=== PATIENT | female | born 1975 | race Caucasian/White ===

== ENCOUNTER → 2023-01-24 12:47 | Outpatient (REF) | payer OTHER, SELFPAY ==
--- NOTE | 2023-01-24 12:52 | CA_ITS ---
Transthoracic Echocardiogram Patient (Last, First, Middle): Ana Lilia Cobian, Gender: Female Date of : 1975 Age: 47 Procedure Date: 01/24/2023 Procedure Type: Transthoracic Echocardiogram Location: OP Height: 165.1 cm Weight: 74.84 kg BSA: 1.82 m2 Heart Rate: 75 bpm BP: 124 / 70 mmHg Riveter Pneumatic: GRACE Referring MD: Mary Montaño NP Symptoms: R06.001 DYSPNEA Study Quality: Fair but adequate ECG Rhythm: Sinus Conclusions: - The left ventricular systolic function is low normal. The calculated ejection fraction is 54% by biplane method. - No obvious valvular pathology seen on this study. Findings Left Ventricle Normal left ventricular cavity size. There is normal left ventricular wall thickness. The left ventricular systolic function is low normal. The calculated ejection fraction is 54% by biplane method. There is no evidence of regional wall motion abnormalities. Diastolic function is normal for age. Right Ventricle Normal right ventricular cavity size and systolic function. Atria Both atria are normal in size. Aortic Valve The aortic valve was not well visualized. The aortic valve structure and function is likely normal. There is no aortic valve stenosis. There is no aortic valve regurgitation. Mitral Valve The mitral valve appears normal. There is no mitral valve regurgitation. There is no mitral valve stenosis. Pulmonic Valve The pulmonic valve is likely normal. Tricuspid Valve Normal tricuspid valve structure. There is mild tricuspid valve regurgitation. There is no evidence of pulmonary hypertension. Great Vessels The asc aorta is normal in size. Venous The inferior vena cava is normal in size and collapses greater than 50% with inspiration. Pericardium/Pleural There is no evidence of pericardial effusion. Prior Study Comparison No prior study available for comparison. Recommendations, Care & Conclusions No obvious valvular pathology seen on this study. Measurements 2D Linear Measurements IVSd: 0.96 0.6-0.9/0.6-1.0 cm LVIDd: 4.49 3.9-5.3/4.2-5.9 cm LVIDd Index: 2.47 2.4-3.2/2.2-3.1 cm/m2 LVIDs: 3.22 2.0-3.6 cm LVPWd: 0.68 0.7-1.1 cm LA Diam: 3.30 2.7-3.8/3.0-4.0 cm LAIDs Index: 1.81 1.5-2.3 cm/m2 LV Mass: 145.19 67-162/88-224 g LV Mass Index: 79.77 43-95/49-115 g/m2 LVOT Diam: 1.90 3.0+(-)1.3 cm 2D Systolic Function EF 4C: 48.70 >55% EF 2C: 58.80 >55% EF BiP: 53.60 >55% Mitral Valve MV Pk E: 0.77 MV PK A: 0.55 MV Decel Time: 193.00 E/A: 1.40 E'Lateral: 11.60 E'Medial: 10.20 E/E' Med: 7.50 E/E' Lat: 6.60 PHT: 57.00 MVA PHT: 3.86 Decel Marinette: 3.97 Aortic Valve AoV Pk Gerardo: 1.11 AoV Pk Grad: 5.00 FARHAN: 2.87 LVOT LVOT Pk Gerardo: 1.10 LVOT Mn Gerardo: 0.81 LVOT VTI: 0.25 LVOT Pk Grad: 5.00 LVOT Mn Grad: 3.00 LVOT Diam: 1.90 LVOT Area: 2.84 Diastolic Function MV Pk E: 0.77 MV Pk A: 0.55 E/A: 1.40 E'Medial: 10.20 E/E' Med: 7.50 E' Laterial: 11.60 E/E' Lat: 6.60 Right Ventricle TAPSE (mm): 18.20 TVS' Gerardo: 12.60 Tricuspid Valve TR Pk Gerardo: 2.07 TR Pk Grad: 17.00 RA Press: 3.00 RVSP: 20.00 Great Vessels Aorta Sinus of Valsalva: 2.40 2.0-3.5 cm Ao Asc: 2.80 2.1-3.4 cm Pulmonary Valve PV Pk Gerardo: 0.89 Peak PV Grad: 3.00 Updated in Other Vendor System with Status of Final Ilya Cr MD electronically signed on 01/24/2023 4:46:27 PM with status of Final
== END ==
LOC: HO.CARD 12:47
PROVIDERS: Visit Provider Nurse Practitioner Family
DX: R06.00 Dyspnea, unspecified (principal)
CPT/HCPCS: 93306

== ENCOUNTER → 2023-01-24 12:52 | Outpatient (BNV) | payer OTHER, SELFPAY | PROVIDERS: Visit Provider Internal Medicine | DX: I36.1 Nonrheumatic tricuspid (valve) insufficiency (principal) | CPT/HCPCS: 93306 ==

== ENCOUNTER 2024-07-16 09:29 | Outpatient (REF) | payer OTHER, SELFPAY ==
--- NOTE | 2024-07-16 09:32 | EMG_ITS ---
Chief complaint: Left worse than right, numbness in 1st-3rd digits, thenar pain Reason for referral: Evaluate for Carpal Tunnel Syndrome Referred by: Isaac ROBLES Procedure done: Bilateral upper extremities NCS/EMG Precautions and/or limitations: None The limb temperature was monitored continuously and remained between 32-36 degrees C during the performance of the NCS. Nerve Conduction Studies Anti Sensory Summary Table ?Stim Site NR Onset (ms) Norm Onset (ms) Peak (ms) Norm Peak (ms) O-P Amp (?V) Norm O-P Amp Site1 Site2 Delta-0 (ms) Dist (cm) Gerardo (m/s) Norm Gerardo (m/s) Left Median Anti Sensory (2nd Digit) Wrist ? 3.2 4.0 <3.6 12.9 >10 Wrist 2nd Digit 3.2 14.0 44 Right Median Anti Sensory (2nd Digit) Wrist ? 3.3 4.5 <3.6 26.9 >10 Wrist 2nd Digit 3.3 14.0 42 Left Radial Anti Sensory (Thumb) Forearm ? 1.8 2.3 <3.1 26.0 Forearm Thumb 1.8 0.0 Left Ulnar Anti Sensory (5th Digit) Wrist ? 2.2 2.9 <3.7 44.3 >15.0 Wrist 5th Digit 2.2 14.0 64 Right Ulnar Anti Sensory (5th Digit) Wrist ? 2.3 3.0 <3.7 29.3 >15.0 Wrist 5th Digit 2.3 14.0 61 Motor Summary Table ?Stim Site NR Onset (ms) Norm Onset (ms) O-P Amp (mV) Norm O-P Amp iAmp (mV) Amp (1st) (%) Site1 Site2 Delta-0 (ms) Dist (cm) Gerardo (m/s) Norm Gerardo (m/s) Left Median Motor (Abd Poll Brev) Wrist ? 4.3 <3.9 11.5 >4.5 13.5 100.0 Elbow Wrist 3.2 18.5 58 >45 Elbow ? 7.5 12.3 14.6 107.0 Right Median Motor (Abd Poll Brev) Wrist ? 4.9 <3.9 11.4 >4.5 13.9 100.0 Elbow Wrist 3.1 18.0 58 >45 Elbow ? 8.0 12.2 14.7 107.0 Left Ulnar Motor (Abd Dig Minimi) Wrist ? 2.6 <3.0 8.2 >5 9.5 100.0 B Elbow Wrist 2.6 18.0 69 >45 B Elbow ? 5.2 7.7 9.1 93.9 A Elbow B Elbow 1.3 10.0 77 >45 A Elbow ? 6.5 7.5 8.9 91.5 Right Ulnar Motor (Abd Dig Minimi) Wrist ? 2.9 <3.0 10.1 >5 11.6 100.0 B Elbow Wrist 2.6 16.0 62 >45 B Elbow ? 5.5 8.7 10.2 86.1 A Elbow B Elbow 1.0 10.0 100 >45 A Elbow ? 6.5 8.5 10.1 84.2 EMG ?Side Muscle Nerve Root Ins Act Fibs Psw Amp Dur Poly Recrt Int Pat Comment Right 1stDorInt Ulnar C8-T1 Nml Nml Nml Nml Nml 0 Nml Complete Right FlexCarRad Median C6-7 Nml Nml Nml Nml Nml 0 Nml Complete Right Biceps Musculocut C5-6 Nml Nml Nml Nml Nml 0 Nml Complete Right Triceps Radial C6-7-8 Nml Nml Nml Nml Nml 0 Nml Complete Right Deltoid Axillary C5-6 Nml Nml Nml Nml Nml 0 Nml Complete Left 1stDorInt Ulnar C8-T1 Nml Nml Nml Nml Nml 0 Nml Complete Left FlexCarRad Median C6-7 Nml Nml Nml Nml Nml 0 Nml Complete Left Biceps Musculocut C5-6 Nml Nml Nml Nml Nml 0 Nml Complete Left Triceps Radial C6-7-8 Nml Nml Nml Nml Nml 0 Nml Complete Left Deltoid Axillary C5-6 Nml Nml Nml Nml Nml 0 Nml Complete FINDINGS: Bilateral median motor nerves showed prolonged distal latency, normal amplitude and normal conduction velocity. Bilateral median sensory nerves showed prolonged peak latency. All other nerves tested were within normal. Concentric needle EMG was performed in selected muscles of the bilateral upper extremities. Study did not reveal signs of electric abnormalities as shown in the table above. IMPRESSION: 1. This is an abnormal study. 2. There is electrodiagnostic evidence for bilateral moderate-severe median neuropathy at the wrist, consistent with carpal tunnel syndrome. 3. There is no electrodiagnostic evidence for ulnar neuropathy, brachial plexopathy, or cervical radiculopathy. Thank you for your kind referral. Kindra Mcgee MD, MICHELLE Board Certified, [place] [employer] (ABPMR) Board Certified, [place] [employer] Electro[employer]ostic [employer] (ABEM) CODIN [phone] x 2 MTDD
== END 2024-07-16 09:30 | disposition home or self-care (01) ==
LOC: HO.NEURO 09:29
DX: R20.0 Anesthesia of skin (principal); R20.2 Paresthesia of skin
CPT/HCPCS: 95886; 95911

== ENCOUNTER → 2024-07-16 09:32 | Outpatient (BNV) | payer OTHER, SELFPAY | PROVIDERS: Visit Provider Physical Medicine & Rehabilitation | DX: G56.03 Carpal tunnel syndrome, bilateral upper limbs (principal) | CPT/HCPCS: 95886; 95911 ==

== ENCOUNTER 2024-08-22 10:05 | Outpatient (AMB) | payer OTHER, SELFPAY ==
--- NOTE | 2024-08-22 10:06 | A.OFFVIS_ITS ---
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 Patient reports bilateral numbness and tingling, primarily on her 1st, 2nd, and 3rd digits, that occurs daily, sporadically. Patient states it is worse at night. Denies finger locking. Has tried wrist braces for both hands, wears them at night without relief of symptoms. Denies prior injuries or surgeries to the right hand. Patient reports prior left wrist fracture. 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 Patient reports bilateral numbness and tingling, primarily on her 1st, 2nd, and 3rd digits, that occurs daily, sporadically. Patient states it is worse at night. Denies finger locking. Has tried wrist braces for both hands, wears them at night without relief of symptoms. Denies prior injuries or surgeries to the right hand. Patient reports prior left wrist fracture. 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 No thenar or intrinsic wasting. Good APB muscle firing and good finger cross. Vascular: Capillary refill brisk. ROM: Patient can make a fist and extend all their digits. Skin: No lacerations or abrasions noted. General: No ecchymosis. No erythema or evidence of infection. Results Reviewed Results Reviewed: IMPRESSION: 1. This is an abnormal study. 2. There is electrodiagnostic evidence for bilateral moderate-severe median neuropathy at the wrist, consistent with carpal tunnel syndrome. 3. There is no electrodiagnostic evidence for ulnar neuropathy, brachial plexopathy, or cervical radiculopathy. Thank you for your kind referral. Kindra Mcgee MD, MICHELLE Assessment & Plan Assessment & Plan (1) Bilateral carpal tunnel syndrome: Code(s): G56.03 - Carpal tunnel syndrome, bilateral upper limbs Category: Medical Plan 1. Bilateral carpal tunnel syndrome Symptoms intermittent daily, worse at night Patient is educated about this condition Patient is educated about the typical treatment course At this time, patient states would like to hold off on operative intervention, as she needs to get some of her home affairs in order before she is in a position to recover from surgery Patient is educated on the potential risks of prolonging treatment for carpal tunnel syndrome OT ordered Follow-up as needed and when she has decided to move forward with surgery Orders: Orders OT Evaluation and Treatment Today G56.03 - Carpal tunnel syndrome, bilateral upper limbs Coding Level of Care Code New Pt Level 3 (28761) Diagnoses Bilateral carpal tunnel syndrome G56.03
[2024-08-22 10:08] VITALS: BMI 30.6
--- OUTSIDE RECORDS SUMMARY | 2024-08-22 10:45 | XMS_ITS | Data Portability ---
Author Organization [facility], , [facility], OFFICE Address [address] [place] [address] Care Team Providers Care Java Software Developer Name Role Phone STOVALLMILTON Primary Care Provider [phone] Assessment Encounter Date Assessment Date Assessment LastModified by Organization Details LastModified Time 01/24/2024 01/24/2024 Phone therapy session from 11:00-11:45 a.m. Patient agreed to this visit via phone or secure telehealth platform. Patient understands this is a scheduled visit and the usual procedures with regard to billing and confidentiality apply. Patient was notified that the provider location is [facility] Patient location: home During the visit the patient? s medical history and medical record were reviewed. The patient was notified to call our office for worsening or urgent symptoms. eforman Not available 01/24/2024 11:03:37 05/22/2024 05/22/2024 Phone therapy session from 11:00-11:45 a.m. Patient agreed to this visit via phone or secure telehealth platform. Patient understands this is a scheduled visit and the usual procedures with regard to billing and confidentiality apply. Patient was notified that the provider location is [facility] Patient location: home During the visit the patient? s medical history and medical record were reviewed. The patient was notified to call our office for worsening or urgent symptoms. eforman Not available 05/22/2024 11:01:24 06/17/2024 06/17/2024 Phone therapy session from 5:00-5:45 p.m. Patient agreed to this visit via phone or secure telehealth platform. Patient understands this is a scheduled visit and the usual procedures with regard to billing and confidentiality apply. Patient was notified that the provider location is [facility] Patient location: home During the visit the patient? s medical history and medical record were reviewed. The patient was notified to call our office for worsening or urgent symptoms. eforman Not available 06/17/2024 17:02:06 Plan of Treatment Reminders Order Date Submit Date Provider Last Modified By Organization Details Last Modified Time Details Appointments None recorded. Lab rapid strep group A, throat [email or web address] P[facility], [address] [place] [address], [id number], 4 14:16:17 culture, throat - SOURCE THROAT 2023 024 [facility], [address] [place] [address], [address], 4 05:02:55 Referral hand surgeon referral - carpal tunnel eval and tx 2024 025 [email or web address] Jemima Foote MD, [address] [place] [address] [place], [address], 5 08:48:28 Procedures None recorded. Surgeries None recorded. Imaging None recorded. Medication Orders azithromyci n 250 mg tablet 2023 025 [facility] #[id number], [address] [place], [address], 5 14:33:25 Patient Targets Encounter Date Encounter Id Patient Goals Patient Target Last Modified By Organization Details Last Modified Time Decrease anxiety, process how to heal from spiritism upbringing eforman Not available 01/24/2024 11:03:12 Decrease anxiety, process how to heal from spiritism upbringing eforman Not available 05/22/2024 11:01:26 Decrease anxiety, process how to heal from spiritism upbringing eforman Not available 06/17/2024 17:01:40 Patient Instructions Encounter Date Encounter Id Patient Instructions Last Modified By Organization Details Last Modified Time 01/24/2024 [id number] Follow-up therap y if/when needed, continue to take medication as prescribed eforman Not available 01/24/2024 11:45:18 narayan Chavez is walking despite dire medical diagnosis which feels like a miracle experience has triggered difficult memories from parenting son vacation was enjoyable and helped reduce anxiety on diet for brenda-menopausal women (anti-inflammatory foods) which has been helpful in clearing brain fog working on better work/life balance, trying to not be a workaholic 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 Discussed of brother Harpreet in August (walking and hit by drunk carrier driver), hadn't talked to him since childhood, another brother also previously brother Krish is sole surviving brother, concerned about his alcoholism, uncertain whether to resume contact eforman Not available 01/24/2024 11:44:22 05/22/2024 [id number] Follow-up therap y if/when needed, continue to take medication as prescribed eforman Not available 05/22/2024 11:01:27 decided to reach out to brother Krish on facebook, felt comfortable with this decision found out from niece that Krish had a psychotic break a few years ago and believes he is God took 3 weeks off over Jada as realized hasn't had any rest this year in response to dismay over results of presidential election got a second dog, Landon, narayan Chavez has a wheelchair and is doing OK finds that exercising dogs has been helpful mentally and physically pleased that relationship with mom has improved planning to move to [place] or [place] - job opportunities for partner and proximity to airport - excited about the prospect but process has been stressful discussed the fact that I am unable to provide telehealth outside of [place] working on better work/life balance, trying to not be a workaholic, would like to pay more attention to nutrition and exercise eforman Not available 05/22/2024 11:47:50 06/04/2024 [id number] carpal tunnel syndrome: exercises [email or web address] Not available 06/04/2024 14:48:17 carpal tunnel syndrome: care instructions jdepiero Not available 06/04/2024 14:48:17 06/17/2024 [id number] Follow-up therap y 1 month, continue to take medication as prescribed eforman Not available 06/17/2024 17:45:48 reported that stephon and partner Paul will be moving to [place], [place], offer was accepted on a house, hope to close 07/11 and move in July very pleased with new house but concerned about how she will manage anxiety related to the move working on better work/life balance, trying to not be a workaholic, would like to pay more attention to nutrition and exercise anxiety about political situation but generally feels like she is in a better place in her life now reports medication and therapy have been very helpful in managing anxiety We will schedule one final session, does not feel the need to look for a new therapist at this time eforman Not available 06/17/2024 17:45:40 Reason for Referral Hand Surgeon Referral for Bi lateral carpal tunnel syndrome carpal tunnel eval and tx Referring Physician: Loren Ngo, Family Medicine, Encounter Date: 06/04/2024 Results Created Date Observation Date Name Description Value Unit Range Abnormal Flag Note LastModifiedBy Organization Detail LastModifiedTime 01/15/2001/15/2024 POCST REP strep A POC NEGATI VE Not Available [facility] [address] [place] [address], [address], 01/15/2024 14:10:17 01/15/2001/17/2024 CULTU RE, THROA T culture, throat CULTU RE, THROA T Micro Numbe r: [id number] Test Statu s: Final Speci men Sourc e: Throa t Speci men Quali ty: Adequ ate Resul t: No oroph aryng eal patho gens recov ered. Not Available [facility] [address] [place] [address] B, [place], [address], 01/17/2024 05:02:55 Result Notes None recorded. Procedures Surgical History Date Name Laterality Status Provider Name and Address Organization Details Recorded Time Loly - EGD completed Markus Salcido MD [address] [place] [address], [id number], [facility] 07/19/2023 08:35:59 Imaging Results None recorded. Procedure Notes None recorded. Medical Equipment None Reported. Allergies Allergen ID Allergen Name Allergen Category Reaction Reaction Severity Criticality Documentation Date Start Date Code Code System Note Provider Name and Address Organization Details Recorded Time 409581 amoxicill in medicatio n swelling Not available Not available 07/18/2023 723 RxNorm SHIRA Romo RN, [facility] 4 15:12:53 [id number] erythromy michael medicatio n vomiting Not available Not available 07/18/2023 4053 RxNorm Black out and vomit ing SHIRA Romo RN, [facility] 4 15:13:14 [id number] aspirin medicatio n other Not available Not available 07/18/2023 1191 RxNorm child clayton aller gy, unsur e of react ion SHIRA Romo RN, [facility] 4 15:13:36 Medications Name Sig Start Date Stop Date Status Note LastModified by Organization Details LastModified Time bupropion HCl SR 150 mg tablet,12 hr sustained -release TAKE 1 TABLET BY MOUTH TWICE A DAY 2024 active Not Available Not Available Not Avai lable atorvasta tin 10 mg tablet TAKE 1 TABLET BY MOUTH EVERY DAY IN THE EVENING 2024 active Not Available Not Available Not Avai lable azithromy michael 250 mg tablet TAKE 2 TABLETS BY MOUTH TODAY, THEN TAKE 1 TABLET DAILY FOR 4 DAYS DIRECTED 06/04 completed Not Available Not Available Not Available fluconazo le 150 mg tablet TAKE 1 TABLET BY MOUTH ONCE AND MAY REPEAT IN 3 DAYS 06/22 completed Not Available Not Available Not Available atovaquon e 250 mg-progua nil 100 mg tablet 03/22 completed Not Available Not Available Not Available famotidin e 40 mg tablet TAKE 1 TABLET BY MOUTH TWICE A DAY FOR 90 DAYS active Not Available Not Available No t Available Zantac 300 mg tablet Take 1 tablet every day by oral route. 2010 active Not Available Not Available Not Avai lable sumatript an 50 mg tablet Take 1-2 tablets by oral route once with fluids as early as possible after the onset of a migraine attack;m ay repeat after 2 hours if headache returns, not to exceed 200mg in 24hrs 12/13 completed Not Available Not Available Not Available ciproflox acin 500 mg tablet 03/22 completed Not Available Not Available Not Available bupropion HCl SR 100 mg tablet,12 hr sustained -release TAKE 1 TABLET BY MOUTH DAILY X 3 DAYS, THEN TAKE 1 TAB 2 TIMES A DAY active Not Available Not Available No t Available Flagyl ER 750 mg tablet,ex tended release Take 1 tablet twice a day by oral route for 7 days. 03/17 completed Not Available Not Available Not Available lorazepam 0.5 mg tablet TAKE 1 TO 2 TABLETS BY MOUTH NEEDED FOR PANIC active Not Available Not Available No t Available Flagyl 500 mg tablet TAKE 1 TABLET BY MOUTH TWICE A DAY FOR 7 DAYS 03/17 completed Not Available Not Available Not Available Acid Jelly 0.921 %-0.7 %-0.025 % vaginal gel 12/18 completed Take 1.00 applics as directed Not Available Not Available Not Available omeprazol e 20 mg capsule,d elayed release TAKE 1 CAPSULE BY MOUTH EVERY DAY 30 MINUTES BEFORE MORNING MEAL 06/04 completed not taking 01/15/24 oad Not Available Not Available Not Available permethri n 1 % topical liquid apply to affected areas x 10 min , then wash off, repeat in 1 wk if lice or eggs still noted. 2011 active Not Available Not Available Not Avai amanda ondansetr on 4 mg disintegr ating tablet TAKE 2 TABLETS BY MOUTH EVERY 8 HOURS NEEDED FOR PREMENST RUAL NAUSEA, VOMITING active Not Available Not Available No t Available sertralin e 50 mg tablet TAKE 1 TABLET BY MOUTH EVERYDAY AT BEDTIME active Not Available Not Available No t Available sulindac 200 mg tablet Take 1 tablet twice a day by oral route. 2009 active insuranc e wouldn't cover Not Available Not Available Not Available fluticaso ne propionat e 110 mcg/actua tion HFA aerosol inhaler Inhale 1 puff twice a day by inhalati on route. 06/04 completed not taking 01/15/24 oad Not Available Not Available Not Available Ventolin HFA 90 mcg/actua tion aerosol inhaler INHALE 2 PUFFS EVERY 4 HOURS. active Not Available Not Available No t Available Bactrim DS 800 mg-160 mg tablet Take 1 tablet every 12 hours by oral route for 10 days. 03/27 completed Not Available Not Available Not Available Flonase 50 mcg/Actua tion nasl susp [place] 1 spray every day by intranas al route. active Not Available Not Available No t Available Laxative (bisacody l) 5 mg tablet,de layed release TAKE 4 TABLETS BY MOUTH EVERY DAY 11/03 completed Not Available Not Available Not Available Relpax 20 mg tablet TAKE 1 TABLET BY MOUTH FOR 1 DOSE-IF HEADACHE RETURNS MAY REPEAT IN 2 HOURS-MA X 2/24HRS 03/20 completed Not Available Not Available Not Available Seasonale contracep tive 0.15 mg-30 mcg (91) tablets,3 month dose pack 12/03 completed Take 1.00 tabs every day before noon Not Available Not Available Not Available Claritin active Not Available Not Avai lable Not Available Mirena active Dr Anders 2019. Not Available Not Available Not Available sodium fluoride 1.1 %-potassi um nitrate 5 % dental paste PLEASE SEE ATTACHED FOR DETAILED DIRECTIO NS active Not Available Not Available No t Available GaviLyte- G 236 gram-22.7 4 gram-6.74 gram-5.86 gram oral solution TAKE DIRECTED 11/03 completed Not Available Not Available Not Available Chacha Allergy 06/04 completed Not Available Not Available Not Available Qvar RediHaler 80 mcg/actua tion HFA breath activated aerosol Inhale 2 puffs twice a day by inhalati on route. 06/04 completed Not Available Not Available Not Available Vitals None Recorded Social History Question Answer Notes LastModified by Organizat ion Details LastModified Time What Is Your Level Of Alcohol Consumption? Occasional 3-4 Glasses Wine 3x/week Information not available 03/31/2022 What Is Your Level Of Caffeine Consumption? Moderate 2 Cups Coffee Daily Currently None 05/17/22 Oad Information not available 05/17/2023 How Much Tobacco Do You Chew? None Information not available 02/22/2015 Are You Currently Employed? Yes Information not available 05/17/2023 What Type Of Diet Are You Following? SPECIFIC Fast Metabolism Diet Information not available 05/17/2023 Which Illicit Or Recreational Drugs Have You Used? Edibles [place] Information not available 05/17/2023 Do You Or Have You Ever Used E-cigarettes Or Vape? Never Used Electronic Cigarettes [email or web address] Information not available 06/20/2019 Education Post Graduate [employer] Degree In [employer] peace Information not available 12/18/2008 Have There Been Any Changes To Your Family Or Social Situation? No Son Moved Home From College For Now 04/2022 Information not available 05/11/2022 When Did You Quit Smoking? 16+yearssince lastcigarette Information not available 10/04/2021 How Many Days In The Past Year Have You Had A Heavy Drinking Consumption (4+ Female, 5+ Male)? 2 Information not available 06/22/2020 Are There Any Guns Present In Your Home? No [email or web address] Information not available 03/30/2011 Live Alone Or With Others? With Others Son And Partner [email or web address] Information not available 03/29/2018 Marital Status Informatio n not available 02/22/2015 Mosquito Repellent Used Routinely Yes [email or web address] Information not available 03/30/2011 What Was The Date Of Your Most Recent Tobacco Screening? 06/04/2024 [email or web address] Information not available 06/04/2024 How Many Children Do You Have? 1 [email or web address] Information not available 03/30/2011 Are There Any Occupational Health Risks Where You Work? None Information not available 02/22/2015 What Is Your Current Pack Years? 10packyears Information not available 03/29/2023 What Is Your Relationship Status? Domestic Partner Information not available 05/11/2022 Do You Use Your Seat Belt Or Car Seat Routinely? Yes Information not available 05/11/2022 Seat Belts Used Routinely Yes [email or web address] Information not available 03/30/2011 Are You Sexually Active? No [email or web address] Information not available 03/30/2011 Smoke Alarm In Home Yes [email or web address] Information not available 03/30/2011 Do You Have Smoke And Carbon Monoxide Detectors In Your Home? Yes Information not available 05/11/2022 At What Age Did You Start Smoking Tobacco? 13 Information not available 10/04/2021 Are You Passively Exposed To Smoke? No Information not available 05/11/2022 Do You Or Have You Ever Used Smokeless Tobacco? Never Used Smokeless Tobacco [email or web address] Information not available 06/20/2019 What Types Of Sporting Activities Do You Participate In? Runner Information not available 03/20/2016 General Stress Level Medium Information not available 06/22/2020 Do You Use Any Illicit Or Recreational Drugs? Yes Information not available 05/17/2023 Do You Use Sunscreen Routinely? Yes [email or web address] Information not available 03/30/2011 How Many Years Have You Smoked Tobacco? 6 Information not available 10/04/2021 Do You Or Have You Ever Used Any Other Forms Of Tobacco Or Nicotine? No Information not available 10/04/2021 Sex: Female Functional Status Question Answer Note LastModified by Organization D etails LastModified Time What is your exercise level? Moderate 3x wk Information not available 05/17/2023 Mental Status None recorded. Family History Relationship Description Onset Age of this Age Resolved Age Notes LastModified by Organization Details LastModified Time Maternal Grandfather Heart disease cad eerickson Not available 2014 11:55:20 Mother Hearing loss [email or web address] Not avai lable 02/22/2015 11:55:20 Mother Arthritis fibrom yalgia , rhemat oid arthri tis danyason Not available 02/22/2015 11:55:20 Mother Malignant tumor of colon also uterin e CA bgreen Not available 06/22/2020 11:32:35 Mother Neoplasm of uterus jdulude Not available 2020 11:29:44 Father Hypertensive disorder previo usly record ed as Hypert ension eerickson Not available 02/22/2015 11:55:20 Father Malignant neoplasm of skin jdulude Not available 2020 11:29:59 Sister Problem 1/2 sis-shekhar rderli ne person jaqueline hand Not available 02/22/2015 11:55:20 Sister Problem full sister peace Not available 02/22/2015 11:55:20 Brother Problem 1/2 bro eerickson Not available 02/22/2015 11:55:20 Brother Problem 1/2 ninfa eerickson Not available 02/22/2015 11:55:20 Brother Problem 12/ ninfa eerickson Not available 02/22/2015 11:55:20 Maternal Grandmother Problem 78 connie steele eerickson Not available 02/22/2015 11:55:20 Paternal Grandmother Malignant neoplastic disease skin cancer eerickson Not available 02/22/2015 11:55:20 Medical History No medical history recorded. Gynecological History Statement/Question Response Frequency of Cycle (Q days) 28 Date of LMP 06/03/2020 Menses Monthly Y N HPV N History of Abnormal Pap Y Duration of Flow (days) 5 Age at Menarche 12 Current Control Method IUD Definite N Obstetrics History GPAL:G 0 P 0 0 0 0 Past Encounters Encounter ID Performer Location Encounter Start Date Encounter Closed Date Diagnosis/Indication Diagnosis SNOMED-CT Code Diagnosis ICD10 Code Diagnosis Note [id number] [facility], OFFICE [address] [place] [address] 08/09/2000 09:30:00 06/03/2008 02:02:29 [id number] [facility], OFFICE [address] [place] [address] 05/22/2000 09:00:00 06/03/2008 02:02:29 [id number] [facility], OFFICE [address] [place] [address] 11/01/2000 09:30:00 06/03/2008 02:02:29 [id number] [facility], OFFICE [address] [place] [address] 01/23/2001 13:45:00 06/03/2008 02:02:29 [id number] [facility], OFFICE [address] [place] [address] 04/17/2001 08:15:00 06/03/2008 02:02:29 [id number] [facility], OFFICE [address] [place] [address] 06/07/2001 09:30:00 06/03/2008 02:02:29 [id number] [facility], OFFICE [address] [place] [address] 06/18/2001 13:30:00 06/03/2008 02:02:29 [id number] [facility], OFFICE [address] [facility] [place] [address] 09/09/2001 16:00:00 06/03/2008 02:02:29 [id number] FP, [facility], OFFICE [address] [facility] [place] [address] 09/13/2001 09:15:00 06/03/2008 02:02:29 [id number] [facility], OFFICE [address] [facility] [place] [address] 12/30/2001 16:05:06 06/03/2008 02:02:29 [id number] LAB - [facility] [address] [facility] [place] [address] 12/31/2001 16:32:20 06/03/2008 02:02:29 [id number] [facility], OFFICE [address] [facility] [place] [address] 01/20/2002 17:20:22 06/03/2008 02:02:29 [id number] FP [facility], OFFICE [address] [facility] [place] [address] 06/23/2002 16:12:11 06/03/2008 02:02:29 [id number] , [facility], OFFICE [address] [facility] [place] [address] 07/22/2002 16:45:33 06/03/2008 02:02:29 [id number] , [facility], OFFICE [address] [facility] [place] [address] 09/23/2002 13:42:29 06/03/2008 02:02:29 [id number] LAB - [facility] [address] [facility] [place] [address] 10/24/2002 08:31:18 06/03/2008 02:02:29 [id number] , [facility], OFFICE [address] [facility] [place] [address] 11/03/2002 14:53:08 06/03/2008 02:02:29 [id number] , [facility], OFFICE [address] [facility] [place] [address] 12/01/2002 16:40:07 06/03/2008 02:02:29 [id number] LAB - [facility] [address] 12/01/2002 00:00:00 06/03/2008 02:02:29 [id number] [facility], OFFICE [address] [facility] [place] [address] 01/24/2003 10:45:45 01/24/2003 14:35:47 [id number] LAB - [facility] [address] [place] [address] 01/24/2003 00:00:00 06/03/2008 02:02:29 [id number] [facility], OFFICE [address] [place] [address] 02/04/2003 15:53:04 02/05/2003 09:22:26 [id number] [facility], OFFICE [address] [place] [address] 04/02/2003 16:24:41 04/03/2003 09:48:58 [id number] [facility], OFFICE [address] [place] [address] 12/04/2003 13:41:59 12/05/2003 11:03:16 [id number] LAB - [facility] [address] [place] [address] 01/19/2004 16:03:52 01/19/2004 16:04:19 [id number] [facility], OFFICE [address] [place] [address] 03/28/2004 14:36:53 03/29/2004 15:51:21 [id number] LAB - [facility] [address] [place] [address] 03/31/2004 09:12:53 03/31/2004 09:12:58 [id number] [facility], OFFICE [address] [place] [address] 2004 08:43:12 06/03/2008 02:02:29 [id number] Radiology , [facility] [address] [place] [address] 10/28/2004 08:50:32 10/31/2004 10:02:36 [id number] Radiology , [facility] [address] [place] [address] 10/28/2004 00:00:00 06/03/2008 02:02:29 [id number] [facility], OFFICE [address] [place] [address] 04/07/2005 14:41:08 04/12/2005 13:14:40 [id number] [facility], OFFICE [address] [place] [address] 06/08/2005 11:02:28 06/08/2005 16:02:02 [id number] LAB - [facility] [address] [place] [address] 06/08/2005 12:45:15 06/08/2005 12:45:50 [id number] [facility], OFFICE [address] [place] [address] 06/30/2005 12:04:13 06/03/2008 02:02:29 [id number] [facility], OFFICE [address] [place] [address] 07/12/2006 09:58:04 07/16/2006 11:20:20 [id number] [facility], OFFICE [address] [place] [address] 04/11/2007 13:32:31 06/03/2008 02:02:29 [id number] LAB - [facility] [place] [address] 04/12/2007 09:18:15 04/12/2007 09:18:56 [id number] Radiology , [facility] [place] [address] 04/16/2007 16:00:12 04/17/2007 09:45:37 [id number] Radiology , [facility] [address] [place] [address] 04/16/2007 00:00:00 06/03/2008 02:02:29 [id number] LAB - [facility] [place] [address] 04/15/2007 09:18:29 04/15/2007 09:18:33 [id number] [facility], OFFICE [address] [place] [address] 08/13/2007 08:39:17 06/03/2008 02:02:29 [id number] LAB - [facility] [place] [address] 08/13/2007 10:16:48 08/13/2007 10:17:11 [id number] Radiology , [facility] [place] [address] 09/24/2007 15:46:06 09/25/2007 09:25:39 [id number] Radiology , [facility] Jean Marie [place] [address] 09/24/2007 00:00:00 06/03/2008 02:02:29 [id number] LAB - [facility] [place] [address] 6 10/11/2007 09:29:51 10/11/2007 09:30:02 [id number] , [facility], OFFICE [address] [facility] [place] [address] 10/10/2007 15:09:39 11/06/2007 14:17:54 [id number] , [facility], OFFICE [address] [facility] [place] [address] 6 12/03/2008 14:33:26 12/04/2008 09:05:59 [id number] Radiology , [facility] 70 [place] Godinez62-[address] 6 12/09/2008 10:57:14 12/15/2008 12:18:14 [id number] , [facility], OFFICE [address] [facility] [place] [address] 6 12/18/2008 09:57:34 12/23/2008 11:59:53 [id number] Radiology , [facility] 70 [facility] John SquiresenceDIONTE[address] 6 12/09/2008 00:00:00 03/11/2009 02:00:52 [id number] LAB - [facility] 70 [facility] John [place] [address] 6 12/18/2008 12:01:32 12/18/2008 12:01:39 [id number] LAB - [facility] 70 [facility] John SQUIRESENCEDIONTE [address] 6 01/26/2009 09:41:31 01/26/2009 09:41:44 [id number] , [facility], OFFICE 70 [facility] [place] 6 05/13/2009 14:16:06 05/17/2009 10:39:09 [id number] , [facility], OFFICE 70 [facility] [place] [address] 6 12/13/2009 14:37:38 12/29/2009 14:06:55 [id number] , [facility], OFFICE 70 [facility] [place] [address] 6 02/17/2010 08:29:37 02/21/2010 08:39:41 [id number] Radiology , [facility] 70 [facility] [place] [address] 6 02/17/2010 09:17:35 02/18/2010 12:20:58 [id number] , [facility], OFFICE 70 [place] [address] 6 03/17/2010 13:44:33 03/21/2010 10:36:45 [id number] [facility], OFFICE [address] [place] [address] 08/01/2010 14:03:49 08/03/2010 14:18:11 [id number] [facility], OFFICE [address] [place] [address] 6 03/02/2011 11:36:18 03/02/2011 12:42:56 [id number] Alayna Keys RN [facility], OFFICE [address] [place] [address] 6 05/10/2012 13:41:03 05/10/2012 14:34:22 [id number] Zulay Argueta [facility], OFFICE [address] [place] [address] 6 08/29/2013 08:14:42 08/29/2013 09:41:51 [id number] Shakira Verdin [facility], OFFICE [address] [place] [address] 6 02/10/2014 15:40:18 02/10/2014 16:38:14 [id number] Debora Gallegos LPN [facility], OFFICE [address] [place] [address] 6 08/11/2014 08:07:02 08/12/2014 08:53:11 [id number] Arlet Farah [facility], OFFICE [address] [place] [address] 6 02/22/2015 11:18:22 03/02/2015 13:05:07 [id number] MARGARET Garcia [facility], OFFICE [address] [place] [address] 6 03/18/2015 12:10:59 03/24/2015 08:14:05 [id number] Neisha Yarbrough [facility], OFFICE [address] [place] [address] 6 02/24/2016 14:10:21 02/24/2016 14:36:12 [id number] Lucia anguiano, PT Physical Therapy, [address] [address] 6 02/25/2016 11:59:23 02/28/2016 10:07:31 [id number] Lucia anguiano, PT Physical Therapy, [address] [address] 6 02/29/2016 14:30:06 03/01/2016 07:04:26 [id number] Lucia anguiano, PT Physical Therapy, [address] [address] 6 03/08/2016 08:37:02 03/08/2016 09:28:16 [id number] Lucia anguiano, PT Physical Therapy, [address] [address] 6 03/08/2016 09:08:25 03/08/2016 10:30:30 [id number] Lucia anguiano, PT Physical Therapy, [address] [address] 6 03/10/2016 12:37:02 03/10/2016 13:40:05 [id number] Mary Montaño NP , [facility], OFFICE [address] [place] [address] 6 03/20/2016 13:41:09 03/20/2016 14:30:43 [id number] Mary Montaño NP , [facility], OFFICE [address] [place] [address] 6 03/22/2017 10:23:29 03/22/2017 11:12:32 [id number] Edwin Husain MD , [facility], OFFICE [address] [place] [address] 6 03/29/2018 13:50:22 03/29/2018 14:45:09 [id number] Loren Ngo MD , [facility], OFFICE [address] [place] [address] 6 06/20/2019 07:58:16 06/20/2019 08:45:21 [id number] MD TAVIA Mike, [facility], OFFICE [address] [place] [address] 6 06/22/2020 11:14:36 06/24/2020 13:20:36 [id number] Lucia anguiano, PT Physical Therapy, [address] [address] 6 06/24/2020 13:04:34 06/25/2020 13:38:14 [id number] Lucia anguiano, PT Physical Therapy, [address] [address] 6 07/01/2020 09:30:12 07/01/2020 12:52:27 [id number] Lucia anguiano, PT Physical Therapy, [address] [place] [address] 6 07/07/2020 09:30:52 07/07/2020 17:00:10 [id number] Lucia Ennis z, PT Physical Therapy, [address] [place] [address] 6 07/14/2020 12:26:05 07/14/2020 15:13:50 [id number] Lucia Ennis z, PT Physical Therapy, [address] [place] [address] 6 07/21/2020 13:30:24 07/21/2020 16:31:32 [id number] Lucia Ennis z, PT Physical Therapy, [address] [address] 6 07/28/2020 13:47:20 07/29/2020 08:56:39 [id number] Lucia anguiano, PT Physical Therapy, [address] [address] 6 08/04/2020 11:54:12 08/04/2020 15:56:06 [id number] Lucia Ennis z, PT Physical Therapy, [address] [place] [address] 6 08/11/2020 15:27:50 08/11/2020 16:06:09 [id number] Lucia Ennis z, PT Physical Therapy, [address] [address] 6 08/18/2020 15:01:13 08/18/2020 15:49:24 [id number] Lucia Ennis z, PT Physical Therapy, [address] [address] 6 08/25/2020 11:27:17 08/25/2020 12:47:25 [id number] Lucia Ennis z, PT Physical Therapy, [address] [address] 6 09/01/2020 11:36:09 09/01/2020 16:07:21 [id number] Lucia Ennis z, PT Physical Therapy, [address] [address] 6 09/08/2020 14:31:22 09/08/2020 16:14:36 [id number] Lucia anguiano, PT Physical Therapy, [address] [address] 6 09/22/2020 14:53:57 09/22/2020 16:08:29 [id number] Lucia anguiano, PT Physical Therapy, [address] [address] 6 10/01/2020 07:27:50 10/01/2020 13:07:05 [id number] Lucia anguiano, PT Physical Therapy, [address] [address] 6 10/08/2020 12:05:11 10/08/2020 15:13:37 [id number] ATSHI Kapoor, [facility], OFFICE [address] [place] [address] 6 12/23/2020 12:11:15 12/24/2020 10:12:11 [id number] Lucia anguiano, PT Physical Therapy, [address] [address] 6 03/23/2021 15:56:38 03/23/2021 16:51:16 [id number] Lucia anguiano, PT Physical Therapy, [address] [address] 6 04/26/2021 16:59:42 04/27/2021 10:34:03 [id number] Lucia anguiano, PT Physical Therapy, [address] [address] 6 05/03/2021 14:22:45 05/03/2021 14:59:10 [id number] TASHI Kapoor, [facility], OFFICE [address] [place] [address] 6 08/26/2021 11:46:41 08/26/2021 12:09:02 [id number] TASHI Kapoor, [facility], OFFICE [address] [place] [address] 6 10/04/2021 13:25:24 10/04/2021 13:55:25 [id number] Nadja Can [facility], [address] [address] 6 11/24/2021 08:00:08 11/25/2021 11:00:34 [id number] Nadja Can [facility], [facility] [address] [place] [address] 6 12/01/2021 08:14:50 12/02/2021 10:23:44 [id number] Nadja Can [facility], [facility] [address] [place] [address] 6 12/13/2021 07:49:35 12/14/2021 13:07:34 [id number] Nadja Can [facility], [facility] [address] [place] [address] 6 12/30/2021 13:01:21 01/02/2022 13:29:11 [id number] Nadja Can [facility], [facility] [address] [place] [address] 6 01/09/2022 13:53:17 01/10/2022 13:16:09 [id number] Nadja Can [facility] 70 [place] [address] 6 01/23/2022 08:24:51 01/27/2022 13:22:36 [id number] Nadja Can [facility] [address] [place] [address] 6 02/10/2022 08:10:46 02/14/2022 12:20:02 [id number] Nadja Can [facility] [address] [place] [address] 6 02/23/2022 07:53:02 02/23/2022 16:38:21 [id number] Nadja Can [facility] [address] [place] [address] 6 03/02/2022 07:43:54 03/03/2022 21:08:31 [id number] Nadja Can [facility] [address] [place] [address] 6 03/23/2022 14:01:21 03/28/2022 08:14:06 [id number] Nadja Can [facility], [facility] [address] [place] [address] 6 03/30/2022 14:01:12 04/04/2022 12:52:55 [id number] Mary Montaño NP FP, [facility], OFFICE [address] [place] [address] 6 03/31/2022 11:57:49 03/31/2022 15:02:56 [id number] Nadja Can [facility] [address] [place] [address] 6 04/13/2022 14:02:06 04/17/2022 14:51:35 [id number] Mary Montaño NP , [facility], OFFICE [address] [place] [address] 6 05/11/2022 13:42:59 05/11/2022 22:06:21 [id number] Nadja Gabrielan [facility] [address] [place] [address] 6 05/22/2022 10:00:50 05/23/2022 15:14:37 [id number] Susi Cleary LPN , [facility], OFFICE [address] [place] [address] 6 05/26/2022 08:53:40 05/26/2022 12:00:22 [id number] Nadja Gabrielan [facility] [address] [place] [address] 6 06/05/2022 12:00:57 06/05/2022 14:52:13 [id number] Nadja Gabrielan [facility] [address] [place] [address] 6 06/16/2022 12:00:42 06/22/2022 13:32:23 [id number] Nadja Gabrielan [facility] [address] [place] [address] 6 06/29/2022 12:00:27 06/29/2022 13:04:22 [id number] Nadja Gabrielan [facility] [address] [place] [address] 6 07/20/2022 14:01:45 07/24/2022 15:21:11 [id number] Nadja Gabrielan [address] [address] 6 08/28/2022 15:01:19 08/31/2022 11:20:04 [id number] Nadja Gabrielan [facility] [address] [place] [address] 6 11/02/2022 11:01:08 11/10/2022 15:54:02 [id number] TASHI Kapoor, [facility], OFFICE [address] [place] [address] 6 11/03/2022 08:54:17 11/03/2022 09:36:29 [id number] Stephan Craig MD Sports Medicine, [facility] [address] [place] [address] 6 01/23/2023 10:50:52 01/25/2023 15:43:24 [id number] Nadja Can [facility], [facility] [address] [place] [address] 6 01/11/2023 11:01:15 01/12/2023 16:35:34 [id number] [facility] [address] [place] [address] 6 03/29/2023 11:01:21 03/30/2023 12:16:52 [id number] TASHI Kapoor, [facility], OFFICE [address] [place] [address] 6 03/29/2023 14:19:50 03/29/2023 17:58:39 [id number] [facility] [address] [place] [address] 6 04/26/2023 11:01:17 05/01/2023 09:21:37 [id number] TASHI Kapoor, [facility], OFFICE [address] [place] [address] 6 05/17/2023 13:47:00 05/17/2023 19:46:45 [id number] [facility] [address] [place] [address] 6 06/15/2023 11:01:32 06/16/2023 15:23:15 [id number] Ya Turk RN Endoscopy , [facility] [address] [place] [address] 07/19/2023 07:54:52 07/19/2023 13:37:20 [id number] TASHI Kapoor, [facility], OFFICE [address] [place] [address] 6 08/02/2023 15:49:56 08/07/2023 18:20:42 [id number] [facility] [address] [place] [address] 6 10/04/2023 11:01:40 10/06/2023 12:07:59 [id number] Nadja Can [address] [address] 6 10/30/2023 11:00:59 10/31/2023 14:31:13 [id number] Nadja Gabrielan [facility] [address] [place] [address] 6 12/06/2023 15:00:50 12/11/2023 13:22:25 [id number] Alix Gallo NP , [facility], OFFICE [address] [place] [address] 6 01/15/2024 13:43:37 01/16/2024 15:11:48 [id number] Nadja Pamella [facility] [address] [place] [address] 6 01/24/2024 11:02:33 01/28/2024 13:07:25 [id number] Nadja Wilton [address] [address] 6 05/22/2024 11:00:47 06/04/2024 15:54:34 [id number] Loren Ngo MD , [facility], OFFICE [address] [place] [address] 6 06/04/2024 14:28:05 06/04/2024 14:51:37 [id number] Nadja Gabrielan [facility] [address] [place] [address] 6 06/17/2024 17:00:49 06/19/2024 10:19:34 Health Concerns Section Related Observation LastModified by Organization Detai ls LastModified Time None Recorded Concern Status LastModified by Organization Details LastModified Time None Recorded Advance Directives Directive None Recorded Payers Encounter Date Sequence Insurance Name Policy Number Policy [place] Covered Member ID [place] Member ID Guarantor Name 01/15/2024 1 [facility]ENN[facility] HP - DOS ON OR AFTER 2022 - [facility] (MEDICAID REPLACEMENT - HMO) Sera Cobian [id number] Sera Cobian 01/24/2024 1 [facility] JENN[employer] HP - DOS ON OR AFTER 2022 - [employer] (MEDICAID REPLACEMENT - HMO) Sera Cobian [id number] Sera Cobian 05/22/2024 1 [employer] HP - DOS ON OR AFTER 2022 - [employer] (MEDICAID REPLACEMENT - HMO) Sera Cobian [id number] Sera Cobian 06/04/2024 1 [employer] - DOS ON OR AFTER 2022 - [employer] (MEDICAID REPLACEMENT - HMO) Sera Cobian [id number] Sera Cobian 06/17/2024 1 [employer] HP - DOS ON OR AFTER 2022 - [employer] (MEDICAID REPLACEMENT - HMO) Sera Cobian [id number] Sera Cobian OBGyn Episode No OBEpisode recorded.
== END 2024-08-22 10:38 | disposition home or self-care (01) ==
LOC: HO.HOS 10:06
DX: G56.03 Carpal tunnel syndrome, bilateral upper limbs (principal)
CPT/HCPCS: 99203

== ENCOUNTER 2024-09-23 14:57 | Outpatient (RCR) | payer OTHER, SELFPAY ==
--- NOTE | 2024-09-16 08:21 | MHC.OT.EP ---
[address] [phone] Occupational Therapy Plan of Care Patient Name: Ana Lilia Cobian Date of Evaluation: 09/12/24 Diagnosis: B Carpal Tunnel Syndrome Pain Location: B wrists / hands - median nerve pathway Pain Score: Pain Scale Used: Numeric (0 - 10) Aggravating Factors: none reprted Alleviating Factors: none reported Assessment: Pt is a 48 yr. old female who reports sx's of pain, numbness, tingling in B hands and UE's which has been happening for over a year. Pt had a Nerve Conduction study which showed severe / moderate CT. She does understand she is a candidate for surgery, but at this time pt. is unable to have the surgery due to having a disabled dog she needs to care for and a spouse who is out of town often. 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 Pt would benefit from skilled OT therapy to address hand weakness, pain, and numbness to increase the functional use of her B hands. 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 Thank you once again for your referral.
== END 2024-09-25 11:06 | disposition home or self-care (01) ==
LOC: HO.OT 14:57
PROVIDERS: PCP Family Medicine
DX: G56.03 Carpal tunnel syndrome, bilateral upper limbs (principal)
CPT/HCPCS: 97140; 97166

== ENCOUNTER 2024-10-01 10:00 | Day surgery (SDC) | payer MEDICAID, SELFPAY ==
--- OUTSIDE RECORDS SUMMARY | 2024-09-29 14:26 | XMS_ITS | Data Portability ---
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 REPLACEMENT - HMO) Sera Cobian [id number] Sera Cobian 06/04/2024 1 [employer] - DOS ON OR AFTER 2022 - [employer] (MEDICAID REPLACEMENT - HMO) Sera Cobian [id number] Sera Cobian 06/17/2024 1 [employer] - DOS ON OR AFTER 2022 - [employer] (MEDICAID REPLACEMENT - HMO) Sera Cobian [id number] Sera Cobian OBGyn Episode No OBEpisode recorded.
[2024-10-01 10:26] VITALS: BP 161/96; PULSE 95; RESP 16; TEMP 36.1; O2SAT 98; BMI 30.6
--- NOTE | 2024-10-01 11:09 | MHC.SHP ---
Pre-Procedural Eval Section A - 24 Hr Update-Section A only Date of Service: 10/01/24 The patient is an INPATIENT: No Changes since office visit: No Cold of Flu in the past 2 weeks, No New Medical Problems, No Changes in Medication and No Patient answered all questions The patient has been examined within 24 hours of the surgical procedure. The History & Physical has been completed within 30 days and I have reviewed it.: Yes Section B - Complete if H&P > 30 days Chief Complaint: Carpal tunnel syndrome, right upper limb Allergies: Allergies Allergy/AdvReac Type Severity Reaction Status Date / Time penicillin G Allergy Unknown Swelling Verified 08/22/24 10:10 erythromycin base AdvReac Intermediate Vomiting Verified 08/22/24 10:10 [From Erythrocin] Plan Diagnosis/Plan: Unchanged I have reviewed the history and physical and performed a pertinent physical examination on my patient. No changes have occurred unless specified. Time Spent With Patient Time: Total time managing care of this patient today ____ minutes.
--- NOTE | 2024-10-01 11:09 | W.PM.OPN ---
Operative Note Operative Note Date of Service: 10/01/24 Narrative: Preop diagnosis: 1. Right Carpal tunnel syndrome Postop diagnosis: same Procedure: 1. Right Carpal tunnel release Surgeon: Jemima Foote MD Mechanical Systems Design Engineer: Isaac ROBLES Anesthesia: local block using 1% lidocaine with epinephrine Findings: Thickened transverse carpal ligament. EBL: Less than 5 mL Specimens: None Complications: None Disposition: Brought to recovery room in stable condition Plan: Follow-up for 10-14 days for wound check and suture removal Indications: The patient is 48 years old, with right carpal tunnel syndrome that has been unresponsive to nonoperative management. The risks and benefits of operative treatment including but not limited to risk of damage to blood vessels, nerves, tendons, infection, persistent pain, persistent symptoms, or possible need for additional surgery were discussed with the patient and the patient wishes to proceed with surgery. Procedure: Once consent was obtained a local block was performed using a combination of 1% lidocaine with epinephrine. The patient was then brought back to the operating suite and placed on the operative table in supine position. The right upper extremity was prepped and draped in a standard surgical fashion. Once assured that we had a good block, a 2.0 cm longitudinal incision was made centered over the carpal tunnel. The incision was made through the skin to the subcutaneous tissues using a #15 blade. Dissection was made down to the level of the transverse carpal ligament with care being taken to protect the palmar cutaneous nerve. Once the transverse carpal ligament was clearly visualized, a longitudinal incision was made in the transverse carpal ligament 1st using a #15 blade, then using tenotomy scissors under direct visualization. Care was taken to look for and protect the motor branch of the median nerve when seen in this area. Once satisfied with our carpal tunnel release the wound was copiously irrigated with normal saline and hemostasis was obtained with a brief period of local pressure. The skin edges were reapproximated with some 5.0 nylon suture material and a sterile dressing was applied. The patient appears to have tolerated the procedure well and with no complications. All digits were well vascularized at the conclusion of the case.
[2024-10-01 12:49] VITALS: BP 141/81; PULSE 80; RESP 18; O2SAT 98
== END 2024-10-01 12:50 | disposition home or self-care (01) ==
PROVIDERS: PCP Family Medicine; Visit Provider Orthopaedic Surgery
PROC: (CPT 64721; principal; 2024-10-01 13:40)
DX: G56.01 Carpal tunnel syndrome, right upper limb (principal); R20.0 Anesthesia of skin; R20.2 Paresthesia of skin; Z88.0 Allergy status to penicillin; Z88.1 Allergy status to other antibiotic agents
CPT/HCPCS: 64721; J0171; J2003

== ENCOUNTER → 2024-10-01 10:00 | Outpatient (BNV) | payer MEDICAID, SELFPAY | PROVIDERS: PCP Family Medicine; Visit Provider Orthopaedic Surgery | DX: G56.01 Carpal tunnel syndrome, right upper limb (principal) | CPT/HCPCS: 64721 ==

== ENCOUNTER 2024-10-15 11:45 | Outpatient (AMB) | payer OTHER, SELFPAY ==
[2024-10-15 11:57] VITALS: BMI 30.6
--- NOTE | 2024-10-15 11:57 | MHC.OFFVIS ---
Vital Signs 10/15/24 11:57 Height 5 ft 5 in Weight 184 lb BMI 30.6 Intake Visit Reasons: PO-Rt CTR 10/01/24 Intake Note: Ana Lilia is a 48 year old left hand dominant female who presents today for a post operative visit status post right carpal tunnel release DOS: 10/01/[address] Jemima Foote. Patient denies numbness or tingling. Patient is doing well. Sutures removed in office and steri strips applied. Allergies penicillin G Allergy (Unknown, Verified 10/15/24 11:58) Swelling erythromycin base [From Erythrocin] Adverse Reaction (Intermediate, Verified 10/15/24 11:58) Vomiting HPI HPI PO-Rt CTR 10/01/24: Details: Ana Lilia is a 48 year old left hand dominant woman who returns S/p right carpal tunnel release, DOS: 10/01/24. She says she is doing well, her sensation is normal, and she is very happy with the results of her surgery. She has left carpal tunnel syndrome and would like to discuss scheduling this for surgery. Symptoms intermittent, but daily, worse at night. 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 Sutures removed and Steri-Strips applied She can make a fist and extend all her digits Sensation is intact and normal to the tips of all digits of the right hand Cap refill is brisk Nerve Conduction Study: IMPRESSION: 1. This is an abnormal study. 2. There is electrodiagnostic evidence for bilateral moderate-severe median neuropathy at the wrist, consistent with carpal tunnel syndrome. 3. There is no electrodiagnostic evidence for ulnar neuropathy, brachial plexopathy, or cervical radiculopathy. Kindra Mcgee MD, MICHELLE 07/16/24 10/01/24 Psych Appearance: grossly normal Affect: normal affect Attitude: cooperative Assessment & Plan Assessment & Plan (1) Bilateral carpal tunnel syndrome: Code(s): G56.03 - Carpal tunnel syndrome, bilateral upper limbs Category: Medical Plan Assessment & Plan: 1. right carpal tunnel syndrome, S/P release DOS: 10/01/24 Pre-operative symptoms intermittent, but daily, worse at night Now with normal sensation The patient appears to be doing well post-operatively I educated her about the post-operative course I explained the signs and symptoms of infection, if the patient develops any new or worsening erythema, drainage, pain, or warmth they should contact the clinic or attend the ED. I discussed activity modifications, she is to lift nothing heavier than a cellphone for the next 2 weeks She will perform gentle ROM exercises at home She should avoid any underwater activities for the next 5 days She should gently massage about the incision site to reduce the risk of hypersensitivity 2. Left carpal tunnel syndrome, moderate-severe Symptoms intermittent, but daily, worse at night I educated her about this condition I discussed operative and non-operative treatment options The patient would like to proceed with The risks and benefits of operative treatment were discussed with the patient and the patient wishes to proceed with surgery. These risks include, but are not limited to risk of damage to blood vessels, nerves, tendons, infection, recurrence, incomplete relief of preoperative symptoms, persistent pain, possible need for further surgery and the risks associated with regional blocks and anesthesia. The plan is to take the patient to the operating room sometime in the next few weeks for the following procedures: 1. Left carpal tunnel release, under local All of the preoperative paperwork including the consent was reviewed today. All the patient's questions were answered. The patient understands that they will be contacted by our surgery nurse soon to schedule this procedure She denies Diabetes, blood thinners, asthma, heart, lung, kidney issues Scribed for Jemima Foote MD by Bladimir Lane, biomedical electronics technician, on 10/15/24 at 12:05 PM, EST. Coding Level of Care Code Est Pt Level 4 (29221) Diagnoses Bilateral carpal tunnel syndrome G56.03
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
== END 2024-10-15 12:20 | disposition home or self-care (01) ==
PROVIDERS: PCP Family Medicine; Visit Provider Orthopaedic Surgery
DX: G56.03 Carpal tunnel syndrome, bilateral upper limbs (principal)
CPT/HCPCS: 99214

== ENCOUNTER → 2024-10-15 11:45 | Outpatient (BNVA) | payer OTHER, SELFPAY | PROVIDERS: PCP Family Medicine ==

== ENCOUNTER 2024-11-19 14:37 | Outpatient (AMB) | payer MEDICAID, SELFPAY ==
--- NOTE | 2024-11-19 14:40 | MHC.OFFVIS ---
Intake Visit Reasons: PO-RT CTR 10/01/24- ROM check Intake Note: Ana Lilia is a 48 year old left hand dominant female who presents today for a post operative visit status post right carpal tunnel release DOS: 10/01/24 Patient reports that the palm of her hand around her incision is feeling hard to the touch and is swollen. The incision site site is mildly painful to palpitation. Numbness and tingling has resolved. She just wants to ensure that the right hand is healed and ready to compensate for upcoming Left CTR. Allergies penicillin G Allergy (Unknown, Verified 11/24/24 06:53) Swelling erythromycin base (From Erythrocin) Adverse Reaction (Intermediate, Verified 11/19/24 14:44) Vomiting HPI HPI PO-RT CTR 10/01/24- ROM check: Details: Ana Lilia is a 48 year old left hand dominant female who presents today for a post operative visit status post right carpal tunnel release DOS: 10/01/24 Patient reports that the palm of her hand around her incision is feeling hard to the touch and is swollen. The incision site site is mildly painful to palpitation. Numbness and tingling has resolved. She just wants to ensure that the right hand is healed and ready to compensate for upcoming Left CTR. [facility] Medical History (Updated 11/24/24 @ 06:53 by Aileen Stratton RN) GERD (gastroesophageal reflux disease) Depression Anxiety Surgical History (Updated 11/24/24 @ 06:53 by Aileen Stratton RN) Hx of colonoscopy History of esophagogastroduodenoscopy (EGD) History of carpal tunnel surgery of right wrist Social History (Updated 08/22/24 @ 10:09 by CARITO San) Are you a primary customer care assistant to a significant other at home: No Do you presently have visiting nurse or other home services: No Patient Tobacco Use Status: Former Tobacco user Substance Use Frequency: Daily Have you been hit, kicked, punched, or otherwise hurt by someone within the past year? 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 Sutures removed and Steri-Strips applied She can make a fist and extend all her digits Sensation is intact and normal to the tips of all digits of the right hand Normal sensation of the tips of all digits of the left hand in the office today Cap refill is brisk Nerve Conduction Study: IMPRESSION: 1. This is an abnormal study. 2. There is electrodiagnostic evidence for bilateral moderate-severe median neuropathy at the wrist, consistent with carpal tunnel syndrome. 3. There is no electrodiagnostic evidence for ulnar neuropathy, brachial plexopathy, or cervical radiculopathy. Kindra Mcgee MD, MICHELLE 07/16/24 10/01/24 Psych Appearance: grossly normal Affect: normal affect Attitude: cooperative Assessment & Plan Assessment & Plan (1) Bilateral carpal tunnel syndrome: Code(s): G56.03 - Carpal tunnel syndrome, bilateral upper limbs Category: Medical Plan 1. Carpal tunnel syndrome, left Intermittent, daily, worse at night I educated the patient about the condition. I discussed both operative and nonoperative treatment options. The patient would like to proceed with surgery. The risks and benefits of operative treatment were discussed with the patient and the patient wishes to proceed with surgery. These risks include, but are not limited to, risk of damage to blood vessels, nerves, tendons, infection, recurrence, incomplete relief of preoperative symptoms, persistent pain, possible need for further surgery, and the risks associated with regional blocks and/or anesthesia. Plan is to take the patient to the operating room at some point in the next few weeks for the following procedures: 1. Left carpal tunnel release under local All of the preoperative paperwork including the consent was discussed today. All of the patient's questions were answered in the clinic today. The patient understands that they will be in contact with our surgical appliances salesperson to discuss scheduling their procedure. Patient denies diabetes, blood thinners, asthma, heart issues, lung issues, kidney issues, or current smoking. No ongoing concerns status post right carpal tunnel release Coding Level of Care Code Est Pt Level 4 (91639) Diagnoses Bilateral carpal tunnel syndrome G56.03
--- OUTSIDE RECORDS SUMMARY | 2024-11-19 15:09 | XMS_ITS | Data Portability ---
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 [place] PRIOR TO 2022 - [facility] (MEDICAID) Sera Cobian [id number] Sera Cobian 10/04/2021 2 [place] Sera R Cobian [id number] Sera Cobian 10/04/2021 2 [place] Sera Cobian [id number] Sera Cobian 04/29/2004 1 *SELF PAY* Se ra Cobian 07/13/2000 1 *SELF PAY* Se ra Cobian 10/04/2021 2 [place] [facility] (HMO) [id number] Sera Levin [id number] Sera Cobian 10/04/2021 [address] [facility] [id number] Sera Cobian [id number] Sera Cobian 10/04/2021 [address] [facility] [id number] Sera Cobian [id number] Sera Cobian 10/04/2021 [facility] Sera Cobian [id number] Sera Cobian 10/04/[address] [place] [address] [id number] Sera Cobian [id number] Sera Cobian 10/04/2021 2 [place] Sera Cobian [id number] Sera Cobian 10/04/2021 1 [place] Sera [place] [id number] Sera Cobian 10/04/2021 1 [place] [id number] Sera Cobian [id number] Sera Cobian 10/04/2021 2 [place] Sera Cobian [id number] 1 Sera Cobian 10/04/2021 1 [place] Sera Cobian [id number] 1 [place] 10/04/2021 1 [place] [facility] [id number] S[place] [id number] [facility] [place] 10/04/2021 1 [place] [facility] [id number] Sera [facility] [id number] [place] OBGyn Episode No OBEpisode recorded.
== END 2024-11-19 14:56 | disposition home or self-care (01) ==
LOC: HO.HOS 14:37
PROVIDERS: PCP Family Medicine
DX: G56.03 Carpal tunnel syndrome, bilateral upper limbs (principal)
CPT/HCPCS: 99214

== ENCOUNTER → 2024-11-19 14:37 | Outpatient (BNVA) | payer MEDICAID, SELFPAY | PROVIDERS: PCP Family Medicine | DX: G56.03 Carpal tunnel syndrome, bilateral upper limbs (principal) | CPT/HCPCS: 99212 ==

== ENCOUNTER 2024-11-24 06:31 | Day surgery (SDC) | payer MEDICAID, SELFPAY ==
--- OUTSIDE RECORDS SUMMARY | 2024-11-06 15:30 | XMS_ITS | Data Portability ---
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 [address] 05/17/2023 13:47:00 05/17/2023 19:46:45 [id number] Nadja Can [facility] 70 [facility] [place] [address] 06/15/2023 11:01:32 06/16/2023 15:23:15 [id number] Markus Salcido MD [facility] , [facility] [address] [place] [address] 07/19/2023 07:54:52 07/19/2023 13:37:20 [id number] Keyona Longoria DO , [facility], OFFICE 70 [facility] [place] [address] 08/02/2023 15:49:56 08/07/2023 18:20:42 [id number] Nadja Can [facility] 70 [place] [address] 10/04/2023 11:01:40 10/06/2023 12:07:59 [id number] Nadja Can [facility] 70 [place] [address] 10/30/2023 11:00:59 10/31/2023 14:31:13 [id number] Nadja Can [facility] 70 [place] [address] 12/06/2023 15:00:50 12/11/2023 13:22:25 [id number] Abhijit Fulton MD , [facility], OFFICE 70 [facility] [place] [address] 01/15/2024 13:43:37 01/16/2024 15:11:48 [id number] Nadja Can [facility] 70 [place] [address] 01/24/2024 11:02:33 01/28/2024 13:07:25 [id number] Nadja Can [facility] 70 [place] [address] 05/22/2024 11:00:47 06/04/2024 15:54:34 [id number] Loren Ngo MD , [facility], OFFICE [address] [place] [address] 06/04/2024 14:28:05 06/04/2024 14:51:37 [id number] Nadja Can [facility], [facility] 70 [place] [address] 06/17/2024 17:00:49 06/19/2024 10:19:34 Health Concerns Section Related Observation LastModified by Organization Detai ls LastModified Time None Recorded Concern Status LastModified by Organization Details LastModified Time None Recorded Advance Directives Directive None Recorded Payers Insurance Date Sequence Insurance Name Policy Number Policy [place] Covered Member ID [place] Member ID Guarantor Name 10/21/2024 [facility] [employer] [id number] Sera Cobian [id number] Sera Cobian 09/07/2022 [facility] [employer] ([id number]) [id number] Sera Cobian [id number] Sera Cobian 10/23/2024 1 [employer] - DOS ON OR AFTER 2022 - [employer] (MEDICAID REPLACEMENT - HMO) Sera Cobian [id number] Sera Cobian 08/21/2022 [facility] Sera Cobian [id number] Sera Cobian 08/25/2022 1 [place] PRIOR [place] 2022 - [facility] (MEDICAID) Sera Cobian [id number] Sera Cobian 10/04/2021 2 [place] Sera R Cobian [id number] Sera Cobian 10/04/2021 2 [place] Sera Cobian [id number] Sera Cobian 04/29/2004 1 *SELF PAY* Se ra Cobian 07/13/2000 1 *SELF PAY* Se ra Cobian 10/04/2021 2 [place] [facility] (HMO) [id number] Sera Levin [id number] Sera Cobian 10/04/[address] [place] [address] [id number] Sera Saybrook [id number] Sera Cobian 10/04/2021 1 [facility] [id number] Sera Cobian [id number] Sera Saybrook 10/04/2021 [facility] Sera Cobian [id number] Sera Saybrook 10/04/2021 1 [facility] [id number] Sera Saybrook [id number] Sera Saybrook 10/04/2021 2 [place] Sera Cobian [id number] 1 Sera Saybrook 10/04/2021 1 [place] [facility] Sera Levin [id number] Sera Saybrook 10/04/2021 1 [place] [id number] Sera Saybrook [id number] Sera Saybrook 10/04/2021 2 [place] [facility] Sera Cobian [id number] 1 Sera Saybrook 10/04/2021 1 [place] [facility] Sera Cobian [id number] 1 Sera Saybrook 10/04/2021 1 [place] [employer] (HMO) [id number] Sera Saybrook [id number] Sera Saybrook 10/04/2021 1 [place] [place] [id number] Sera [facility] [id number] Sera Saybrook OBGyn Episode No OBEpisode recorded.
[2024-11-24 06:44] VITALS: BMI 30.8
[2024-11-24 06:51] VITALS: BP 141/78; PULSE 80; RESP 18; TEMP 36.7; O2SAT 98
--- NOTE | 2024-11-24 07:44 | MHC.SHP ---
Pre-Procedural Eval Section A - 24 Hr Update-Section A only Date of Service: 11/24/24 The patient is an INPATIENT: No Changes since office visit: No Cold of Flu in the past 2 weeks, No New Medical Problems, No Changes in Medication and No Patient answered all questions The patient has been examined within 24 hours of the surgical procedure. The History & Physical has been completed within 30 days and I have reviewed it.: Yes Section B - Complete if H&P > 30 days Chief Complaint: Carpal tunnel syndrome, left upper limb Allergies: Allergies Allergy/AdvReac Type Severity Reaction Status Date / Time penicillin G Allergy Unknown Swelling Verified 11/24/24 06:53 erythromycin base (From AdvReac Intermediate Vomiting Verified 11/19/24 14:44 Erythrocin) Plan Diagnosis/Plan: Unchanged I have reviewed the history and physical and performed a pertinent physical examination on my patient. No changes have occurred unless specified. Time Spent With Patient Time: Total time managing care of this patient today ____ minutes.
--- NOTE | 2024-11-24 07:44 | W.PM.OPN ---
Operative Note Operative Note Date of Service: 11/24/24 Narrative: Preop diagnosis: 1. Left Carpal tunnel syndrome Postop diagnosis: same Procedure: 1. Left Carpal tunnel release Surgeon: Jemima Foote MD Business Operations Specialist: Isaac ROBLES Anesthesia: local block using 1% lidocaine with epinephrine Findings: Thickened transverse carpal ligament. EBL: Less than 5 mL Specimens: None Complications: None Disposition: Brought to recovery room in stable condition Plan: Follow-up for 10-14 days for wound check and suture removal Indications: The patient is 49 years old, with left carpal tunnel syndrome that has been unresponsive to nonoperative management. The risks and benefits of operative treatment including but not limited to risk of damage to blood vessels, nerves, tendons, infection, persistent pain, persistent symptoms, or possible need for additional surgery were discussed with the patient and the patient wishes to proceed with surgery. Procedure: Once consent was obtained a local block was performed using a combination of 1% lidocaine with epinephrine. The patient was then brought back to the operating suite and placed on the operative table in supine position. The left upper extremity was prepped and draped in a standard surgical fashion. Once assured that we had a good block, a 2.0 cm longitudinal incision was made centered over the carpal tunnel. The incision was made through the skin to the subcutaneous tissues using a #15 blade. Dissection was made down to the level of the transverse carpal ligament with care being taken to protect the palmar cutaneous nerve. Once the transverse carpal ligament was clearly visualized, a longitudinal incision was made in the transverse carpal ligament 1st using a #15 blade, then using tenotomy scissors under direct visualization. Care was taken to look for and protect the motor branch of the median nerve when seen in this area. Once satisfied with our carpal tunnel release the wound was copiously irrigated with normal saline and hemostasis was obtained with a brief period of local pressure. The skin edges were reapproximated with some 5.0 nylon suture material and a sterile dressing was applied. The patient appears to have tolerated the procedure well and with no complications. All digits were well vascularized at the conclusion of the case.
[2024-11-24 08:26] VITALS: BP 134/80; PULSE 79; RESP 16; O2SAT 100
== END 2024-11-24 08:27 | disposition home or self-care (01) ==
PROVIDERS: PCP Family Medicine; Visit Provider Orthopaedic Surgery
PROC: (CPT 64721; principal; 2024-11-24 07:30)
DX: G56.02 Carpal tunnel syndrome, left upper limb (principal); Z98.890 Other specified postprocedural states; Z88.0 Allergy status to penicillin; Z88.1 Allergy status to other antibiotic agents
CPT/HCPCS: 64721; J0165; J2003; J2004

== ENCOUNTER → 2024-11-24 06:31 | Outpatient (BNV) | payer MEDICAID, SELFPAY | PROVIDERS: PCP Family Medicine; Visit Provider Orthopaedic Surgery | DX: G56.02 Carpal tunnel syndrome, left upper limb (principal) | CPT/HCPCS: 64721 ==

== ENCOUNTER 2024-12-09 08:55 | Outpatient (AMB) | payer OTHER, SELFPAY ==
--- NOTE | 2024-12-09 08:56 | A.OFFVIS_ITS ---
Vital Signs 12/09/24 09:11 Height 5 ft 5 in Weight 185 lb BMI 30.8 Intake Visit Reasons: PO LT CTR 11/24/24 AR Intake Note: Ana Lilia is a 49 year old left hand dominant woman who presents today for a post operative visit status post left carpal tunnel release, DOS: 11/24/[address] Jemima Foote. Patient reports she is doing well. Denies numbness, tingling, finger locking. She states she did not take any of the pain medication that was prescribed. Sutures removed and steri strips applied. Of note, patient reported RIGHT ring finger catching, status post right carpal t unnel release, 10/01/[address] Foote. I did explain today's visit will mainly focus on her left goel. Allergies penicillin G Allergy (Unknown, Verified 12/09/24 09:11) Swelling erythromycin base (From Erythrocin) Adverse Reaction (Intermediate, Verified 12/09/24 09:11) Vomiting HPI HPI PO LT CTR 11/24/24 AR: Details: Ana Lilia is a 49 year old left hand dominant woman who presents today for a post operative visit status post left carpal tunnel release, DOS: 11/24/[address] Jemima Foote. Patient reports she is doing well. Denies numbness, tingling, finger locking. She states she did not take any of the pain medication that was prescribed. Sutures removed and steri strips applied. Of note, patient reported RIGHT ring finger clicking, status post right carpal tunnel release, 10/01/[address] Foote. I did explain today's visit will mainly focus on her left hand. 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 Sutures removed and Steri-Strips applied She can make a fist and extend all her digits Sensation is intact and normal to the tips of all digits of the left hand Of note, there is palpable clicking of the right ring finger when extending from a flexed position Psych Appearance: grossly normal Affect: normal affect Attitude: cooperative Assessment & Plan Assessment & Plan (1) Bilateral carpal tunnel syndrome: Code(s): G56.03 - Carpal tunnel syndrome, bilateral upper limbs Category: Medical Plan 1. Status post left carpal tunnel release DOS 11/24/2024 Patient appears to be recovering very well postoperatively Patient is educated about the typical recovery course No acute follow-up indicated for left carpal tunnel release, as the patient appears to be recovering quite well Patient is amenable to this plan 2. Catching of right ring finger Patient is educated about this condition Patient is educated about the typical recovery course Given the acute onset of pain and catching issue, I feel the patient should monitor her symptoms for the upcoming 3-4 weeks to determine whether this is in ongoing trigger finger issue, or whether this is acute and will resolve on its own Patient will continue to monitor symptoms over this timeframe and will call us for new problem visit if issue persists Patient understands this and is amenable to this plan Follow-up as needed Coding Level of Care Code Global (24423) Diagnoses Bilateral carpal tunnel syndrome G56.03
--- OUTSIDE RECORDS SUMMARY | 2024-12-09 09:10 | XMS_ITS | Encounter Summary ---
Author Organization [facility] Address [address] [place] [phone] Phone Care Team Providers Care Battery Hand Name Role Phone Danyel Mary See TASHI Primary Care Provider [phone] Encounter Details Date Type Department Care Team ([facility] st Contact Info) Description 11/08/2022 Procedure Pass [facility] Endoscopy Admitting Dept Virtual Department [address] [place] [address] Social History Tobacco Use Types Packs/Day Years Used Date Smoking Tobacco: Former Cigarettes Q uit: 1998 Smokeless Tobacco: Never Alcohol Use Standard Drinks/Week Comments Yes 3 (1 standard drink = 0.6 oz pur e alcohol) weekly Education Answer Date Recorded Are you interested in more education? Not on sharyn e 09/08/2022 Are you concerned about learning? Not on file 09/08/2022 No 09/08/2022 No 09/08/2022 Digital Access Answer Date Recorded No 10/06/2022 No 10/06/2022 Reliable internet access at home? Not on file 10/06/2022 Device with a working camera? Not on file Intimate Partner Violence Answer Date R ecorded Denied Basic Needs Not on file 11/08/2022 In the past 12 months have y ou been in a relationship with a person who hurts, threatens, or tries to control you? No 11/08/2022 Worried food would run out Not on file 11/08 In the past 12 months have y ou been in a relationship with a person who hurts, threatens, or tries to control you? No 11/08/2022 Comments No Sex and Gender Information Value Date Recorded Sex Assigned at Not on file Legal Sex Female 9:26 PM EDT Gender Identity Not on file Sexual Orientation Not on file documented as of this encounter Plan of Treatment Not on file documented as of this encounter Visit Diagnoses Not on filedocumented in this encounter Care Teams Battery Hand Relationship Specialty Start Date End Date Mary Montaño NP [address] [place] [address] PCP - General Nurse Practitioner 11/06/22 documented as of this encounter Additional Source Comments The information contained in this document represents components of the legal health record. It is not the complete legal health record.[facility]
[2024-12-09 09:11] VITALS: BMI 30.8
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
== END 2024-12-09 09:23 | disposition home or self-care (01) ==
LOC: HO.HOS 08:55
PROVIDERS: PCP Family Medicine
DX: G56.03 Carpal tunnel syndrome, bilateral upper limbs (principal)
CPT/HCPCS: 99024